=== PATIENT | female | born 1975 | race Caucasian/White ===

== ENCOUNTER 2020-07-19 10:19 | Emergency (ER) | payer BC, OTHER ==
[~2020-07-19] VITALS: Ht 170.2 cm; Wt 62.1 kg
[2020-07-19] MEDS ORDERED: MUPIROCIN22 GM TOP (10:52)
== END 2020-07-19 11:02 | disposition home or self-care (01) ==
LOC: FSED 10:35
DX: L23.7 Allergic contact dermatitis due to plants, except food (principal)
CPT/HCPCS: 99282

== ENCOUNTER 2020-10-05 06:30 | Emergency (ER) | payer BC ==
[~2020-10-05] VITALS: Ht 170.2 cm; Wt 64.4 kg
[~2020-10-05 06:30] MED LIST: MUPIROCIN22 GM TOP
[2020-10-05] MEDS ORDERED: CRESTOR10 MG PO (07:09)
[2020-10-05] MEDS: HYDROCODONE/APAP 5MG-325MG TAB PO ONE (07:20)
[2020-10-05] MEDS: KETOROLAC TROMETHAMINE 60 MG/2 ML VIAL IM ONE (07:20)
[2020-10-05] MEDS: ONDANSETRON HCL 4 MG ORAL DISINTEGRATING TAB PO ONE (07:20)
[2020-10-05] MEDS ORDERED: ULTRAM 50MG50 MG PO (07:24)
[2020-10-05] MEDS ORDERED: IBUPROFEN IB200 MG PO (07:24)
[2020-10-05] MEDS ORDERED: ZANAFLEX4 MG PO (07:24)
== END 2020-10-05 09:07 | disposition home or self-care (01) ==
LOC: FSED 07:00
DX: G57.01 Lesion of sciatic nerve, right lower limb (principal); F17.210 Nicotine dependence, cigarettes, uncomplicated
CPT/HCPCS: 72131; 73502; 81003; 96372; 99284; J1885; Q0162

== ENCOUNTER 2021-02-16 19:11 | Emergency (ER) | payer BC ==
[~2021-02-16] VITALS: Ht 170.2 cm; Wt 59.0 kg
[~2021-02-16 19:11] MED LIST changes: +CRESTOR10 MG PO; +IBUPROFEN IB200 MG PO; +ULTRAM 50MG50 MG PO; +ZANAFLEX4 MG PO
[2021-02-16] MEDS ORDERED: FAMOTIDINE 20 MG TAB PO ONE (20:00)
[2021-02-16] MEDS ORDERED: PREDNISONE 20 MG TAB PO ONE (20:00)
[2021-02-16] MEDS ORDERED: PREDNISONE20 MG PO (20:03)
[2021-02-16] MEDS ORDERED: PREDNISONE 20 MG TAB ONE (20:03)
[2021-02-16] MEDS ORDERED: FAMOTIDINE 20 MG TAB ONE (20:03)
[2021-02-16] MEDS ORDERED: FAMOTIDINE40 MG PO (20:04)
[2021-02-16] MEDS ORDERED: EPINEPHRIN0.3 MG/0.3 IM (20:05)
== END 2021-02-16 20:42 | disposition home or self-care (01) ==
LOC: FSED 19:26
DX: T78.40XA Allergy, unspecified, initial encounter (principal); T78.2XXA Anaphylactic shock, unspecified, initial encounter; M85.88 Other specified disorders of bone density and structure, other site; E21.3 Hyperparathyroidism, unspecified; F17.210 Nicotine dependence, cigarettes, uncomplicated
CPT/HCPCS: 99283; J7512